=== PATIENT | female | born 1990 | race Caucasian/White ===

== ENCOUNTER 2017-07-08 06:45 | Emergency (ER) | payer OTHER ==
[~2017-07-08] VITALS: Ht 157.5 cm; Wt 117.9 kg
--- NOTE | ~2017-07-08 | EKG ---
[place] [address] [facility] [place] [address] ELECTROCARDIOGRAM REPORT Name: PAPO MONTAGUE [facility] #: 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
[~2017-07-08 06:45] MED LIST: TRINATE TABLET1 TAB PO
[2017-07-08 07:15] LABS: ABSOLUTE NEUTROPHILS 4.2 thou/uL (1.4-8.2); BASOPHILS 0.7 % (0.0-2.0); EOSINOPHILS 6.8 % (0.0-3.0); HEMATOCRIT 32.6 % (37.0-47.0); HEMOGLOBIN 10.7 gm/dL (12.0-15.0); LYMPHOCYTES 34.6 % (24.0-44.0); MCHC 32.8 g/dL (28.0-37.0); MCV 85.3 fL (80.0-100.0); MONOCYTES 6.2 % (1.0-8.0); PLATELET COUNT 200 thou/uL (150-400); POLYS 51.7 % (36.0-66.0); RBC 3.82 mil/uL (4.20-5.00); RDW 15.9 % (10.5-14.5); WBC 8.2 thou/uL (4.0-11.0)
[2017-07-08 07:16] LABS: MANUAL DIFF NO
[2017-07-08 07:16] LABS: URINE BILIRUBIN NEGATIVE (Negative); URINE BLOOD 2+ (Negative); URINE COLOR YELLOW; URINE GLUCOSE-RANDOM* NEGATIVE (Negative); URINE KETONES NEGATIVE (Negative); URINE NITRITE NEGATIVE (Negative); URINE PROTEIN (DIPSTICK) NEGATIVE (Negative); URINE SPECIFIC GRAVITY >= 1.030 (1.003-1.035); URINE UROBILINOGEN 0.2 E.U./dl (0.2-1.0)
[2017-07-08 07:23] LABS: ANION GAP 7 mmol/L (7-16); BUN 14 mg/dL (7-18); CALCIUM 8.8 mg/dL (8.5-10.1); CHLORIDE 105 mmol/L (98-107); CO2 26 mmol/L (21-32); CREATININE 0.9 mg/dL (0.6-1.0); GLUCOSE 96 mg/dL (74-106); POTASSIUM 3.8 mmol/L (3.5-5.1); SODIUM 138 mmol/L (136-145)
[2017-07-08] MEDS ORDERED: ALYACEN1 EAC1 PO (07:27)
[2017-07-08 07:33] LABS: TROPONIN-I < 0.04 ng/mL (<0.04-0.07)
[2017-07-08 07:34] LABS: BACTERIA None Seen /HPF (None Seen); CASTS None Seen /LPF (None Seen); SQUAMOUS 4-10 Moderate /LPF (0-3); URINE RBC 3-10 Few /HPF (0-2); URINE WBC 0-5 Rare /HPF (0-5)
[2017-07-08 07:35] LABS: CRYSTALS None Seen /LPF (None Seen)
[2017-07-08 07:40] LABS: ALBUMIN 2.9 g/dL (3.4-5.0); ALKALINE PHOSPHATASE 96 U/L (46-116); DIRECT BILIRUBIN < 0.1 mg/dL (<0.1-0.3); SGOT 15 U/L (15-37); SGPT 15 U/L (30-65); TOTAL BILIRUBIN 0.1 mg/dL (<0.1-1.0); TOTAL PROTEIN 6.8 g/dL (6.4-8.2)
[2017-07-08 09:18] LABS: PLATELET ESTIMATE NORMAL
[2017-07-08] MEDS ORDERED: IBUPROFEN 800800 MG PO (09:30)
[2017-07-08 09:40] VITALS: BP 125/88
== END 2017-07-08 09:42 | disposition home or self-care (01) ==
LOC: ER 06:45
PROVIDERS: Emergency Medicine
DX: M94.0 Chondrocostal junction syndrome [Tietze] (principal); F10.99 Alcohol use, unspecified with unspecified alcohol-induced disorder; Z98.890 Other specified postprocedural states

== ENCOUNTER 2017-08-26 13:20 | Emergency (ER) | payer OTHER ==
[~2017-08-26] VITALS: Ht 157.5 cm; Wt 118.8 kg
--- NOTE | ~2017-08-26 | EKG ---
[address] [address] ELECTROCARDIOGRAM REPORT Name: PAPO MONTAGUE Room #: DEP [facility]#: [id number] Admission: 08/26/17 Attend Phys: Discharge: 08/26/17 Date of : [birth year] Report #: [id number] THIS REPORT FOR: //name// [facility] ED Test Date: 2017-08-26 Test Time: 14:08:39 Pat Name: PAPO MONTAGUE Department: Room: Gender: F Search Strategist: [id number] : 1990 Requested By: Yennifer Dick Order Number: [id number] MD: Angel Taylor Measurements Intervals [place] Rate: 88 P: 18 WI: 169 QRS: -2 QRSD: 93 T: 16 QT: 370 QTc: 448 Interpretive Statements Sinus rhythm Compared to ECG 07/08/2017 07:21:47 No significant changes Electronically Signed On 08-26-2017 18:14:05 ADMIN ASST by Angel Taylor [email or web address] <ELECTRONICALLY SIGNED> By: Angel Taylor MD 08/26/17 1814 1408 1408 MD THALIA Parknison
[~2017-08-26 13:20] MED LIST changes: +ALYACEN1 EAC1 PO; +IBUPROFEN 800800 MG PO
[2017-08-26 13:54] LABS: URINE BILIRUBIN NEGATIVE (Negative); URINE BLOOD NEGATIVE (Negative); URINE COLOR YELLOW; URINE GLUCOSE-RANDOM* NEGATIVE (Negative); URINE KETONES NEGATIVE (Negative); URINE NITRITE NEGATIVE (Negative); URINE PROTEIN (DIPSTICK) NEGATIVE (Negative); URINE SPECIFIC GRAVITY >= 1.030 (1.003-1.035); URINE UROBILINOGEN 0.2 E.U./dl (0.2-1.0)
[2017-08-26 14:40] VITALS: BP 125/104
== END 2017-08-26 14:40 | disposition home or self-care (01) ==
LOC: ER 13:20
PROVIDERS: Emergency Medicine
DX: R42 Dizziness and giddiness (principal); N93.8 Other specified abnormal uterine and vaginal bleeding; Z90.49 Acquired absence of other specified parts of digestive tract; Z98.890 Other specified postprocedural states